=== PATIENT | female | born 2000 | race Caucasian/White ===

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

== ENCOUNTER → 2022-01-13 | Emergency (ER) | payer BC ==
[2022-01-13 02:29] VITALS: BP 117/69; PULSE 80; RESP 18; TEMP 98.3; BMI 33.0
[2022-01-13 04:18] LABS: ALBUMIN 3.8 g/dl (3.4-5.0); BLOOD UREA NITROGEN 13.4 mg/dL (7-18)
[2022-01-13 04:21] LABS: BASO % 0.2 % (0-2.0); CREATININE 0.8 mg/dL (0.55-1.3); EOS % 2.3 % (0-4.5); HEMATOCRIT 38.8 % (32.4-45.2); HEMOGLOBIN 13.4 GM/dL (10.7-15.3); MCH 31.7 pg (25.7-33.7); MCHC 34.5 g/dl (32.0-36.0); MEAN CELL VOLUME 91.8 fl (80-96); MEAN PLT VOLUME 7.8 fl (7.5-11.1); MONO % 7.2 % (3.8-10.2); NEUT % 51.3 % (42.8-82.8); PLATELET COUNT 308 10^3/uL (134-434); RBC 4.23 M/mm3 (3.60-5.2); RDW 12.7 % (11.6-15.6); WHITE BLOOD COUNT 8.4 K/mm3 (4.0-10.0)
[2022-01-13 04:23] LABS: BILIRUBIN,TOTAL 0.3 mg/dL (0.2-1)
== END | disposition home or self-care (01) ==
LOC: JER 02:14
DX: T75.4XXA Electrocution, initial encounter (principal)
CPT/HCPCS: 36415; 71046-TC-FY; 80053; 82550; 84484; 84703; 85025; 93005; 93010; 99285-25